=== PATIENT | male | born 1960 | race Caucasian/White ===

== ENCOUNTER → 2019-07-30 12:38 | Outpatient (BNVA) | payer MEDICARE, MEDICAID, SELFPAY | PROVIDERS: Family Provider Nurse Practitioner; PCP Nurse Practitioner; Visit Provider Nurse Practitioner | DX: J44.1 Chronic obstructive pulmonary disease with (acute) exacerbation (principal); E78.5 Hyperlipidemia, unspecified; E55.9 Vitamin D deficiency, unspecified; Z12.5 Encounter for screening for malignant neoplasm of prostate; Z86.59 Personal history of other mental and behavioral disorders; R39.11 Hesitancy of micturition; R09.81 Nasal congestion | CPT/HCPCS: 80053; 80061; 82306; G0103 ==

== ENCOUNTER 2019-09-02 14:07 | Outpatient (CLI) | payer MEDICARE, MEDICAID, SELFPAY ==
--- NOTE | 2019-09-02 14:16 | XR_ITS ---
WS: [id number] TIBIA-FIBULA LEFT TECHNIQUE: 2 views of the left tibia-fibula CLINICAL INFORMATION: left knee pain COMPARISON: None. FINDINGS: No evidence of acute fracture dislocation. Normal tibiotalar joint. Normal visualized tibia and fibul a. Normal soft tissues. XR/XR tibia fibula LT 2V [id number] IMPRESSION: Normal left tibia and fibula
--- NOTE | 2019-09-02 14:16 | XR_ITS ---
WS: [id number] KNEE LEFT TECHNIQUE: 2 views of the left knee CLINICAL INFORMATION: left knee pain COMPARISON: None. FINDINGS: Mild degenerative narrowing medial joint compartment. Lateral compartment is better preserved. Hypert rophic patella. Small suprapatellar effusion. 10 mm Radiopaque density medial tibial plateau. XR/XR knee LT 1-2V [id number] IMPRESSION: 1. Mild degenerative arthritis left knee with mild medial compartment narrowin g. 2. Hypertrophic patella with small suprapatellar effusion. 3. 10 mm radiopaque foreign object medial tibial plateau
== END 2019-09-02 14:08 | disposition home or self-care (01) ==
LOC: RADWPI 14:12
PROVIDERS: Family Provider Nurse Practitioner; PCP Nurse Practitioner; Visit Provider Surgery
DX: M17.12 Unilateral primary osteoarthritis, left knee (principal); M25.462 Effusion, left knee
CPT/HCPCS: 73560; 73590

== ENCOUNTER → 2020-02-03 11:34 | Outpatient (BNVA) | payer MEDICARE, MEDICAID, SELFPAY | PROVIDERS: Family Provider Nurse Practitioner; PCP Nurse Practitioner; Visit Provider Nurse Practitioner | DX: Z12.5 Encounter for screening for malignant neoplasm of prostate (principal); E78.5 Hyperlipidemia, unspecified; E55.9 Vitamin D deficiency, unspecified; J44.1 Chronic obstructive pulmonary disease with (acute) exacerbation; Z86.59 Personal history of other mental and behavioral disorders; R39.11 Hesitancy of micturition; R09.81 Nasal congestion; J44.9 Chronic obstructive pulmonary disease, unspecified | CPT/HCPCS: 80053; 80061 ==

== ENCOUNTER → 2020-10-07 12:14 | Outpatient (BNVA) | payer MEDICARE, MEDICAID, SELFPAY | PROVIDERS: Family Provider Nurse Practitioner; PCP Nurse Practitioner; Visit Provider Nurse Practitioner | DX: E78.5 Hyperlipidemia, unspecified (principal); E55.9 Vitamin D deficiency, unspecified; J44.9 Chronic obstructive pulmonary disease, unspecified; Z86.59 Personal history of other mental and behavioral disorders; R09.81 Nasal congestion | CPT/HCPCS: 80053; 80061; 82306; 83721 ==

== ENCOUNTER → 2021-04-04 15:07 | Outpatient (BNVA) | payer MEDICARE, MEDICAID, SELFPAY | PROVIDERS: Family Provider Nurse Practitioner; PCP Nurse Practitioner; Visit Provider Nurse Practitioner | DX: J44.9 Chronic obstructive pulmonary disease, unspecified (principal); R09.81 Nasal congestion; E55.9 Vitamin D deficiency, unspecified; E78.5 Hyperlipidemia, unspecified; E78.1 Pure hyperglyceridemia; R39.11 Hesitancy of micturition; Z86.59 Personal history of other mental and behavioral disorders | CPT/HCPCS: 71046; 80053; 80061; 82306; 83721; 85025 ==

== ENCOUNTER → 2021-09-26 10:47 | Outpatient (BNVA) | payer MEDICARE, MEDICAID, SELFPAY | PROVIDERS: Family Provider Nurse Practitioner; PCP Nurse Practitioner; Visit Provider Nurse Practitioner | DX: E78.1 Pure hyperglyceridemia (principal); E55.9 Vitamin D deficiency, unspecified | CPT/HCPCS: 80053; 80061; 82306 ==

== ENCOUNTER → 2022-02-13 13:41 | Outpatient (BNVA) | payer MEDICARE, MEDICAID, SELFPAY | PROVIDERS: Family Provider Nurse Practitioner; PCP Nurse Practitioner; Visit Provider Nurse Practitioner | DX: R73.9 Hyperglycemia, unspecified (principal); E78.5 Hyperlipidemia, unspecified; R09.81 Nasal congestion; E78.1 Pure hyperglyceridemia; R39.11 Hesitancy of micturition; J44.9 Chronic obstructive pulmonary disease, unspecified; Z86.59 Personal history of other mental and behavioral disorders; E55.9 Vitamin D deficiency, unspecified | CPT/HCPCS: 80053; 80061; 82306; 83036; 83721 ==

== ENCOUNTER → 2022-05-11 14:01 | Outpatient (BNVA) | payer MEDICARE, MEDICAID, SELFPAY | PROVIDERS: Family Provider Nurse Practitioner; PCP Nurse Practitioner; Visit Provider Nurse Practitioner | DX: E78.5 Hyperlipidemia, unspecified (principal); H91.93 Unspecified hearing loss, bilateral; M25.511 Pain in right shoulder | CPT/HCPCS: 73030 ==

== ENCOUNTER → 2022-06-30 09:51 | Outpatient (BNVA) | payer MEDICARE, MEDICAID, SELFPAY | PROVIDERS: Family Provider Nurse Practitioner; PCP Nurse Practitioner; Visit Provider Nurse Practitioner | DX: R09.81 Nasal congestion (principal); E78.5 Hyperlipidemia, unspecified; E78.1 Pure hyperglyceridemia; R39.11 Hesitancy of micturition; J44.9 Chronic obstructive pulmonary disease, unspecified; Z86.59 Personal history of other mental and behavioral disorders; M79.18 Myalgia, other site | CPT/HCPCS: 80053; 80061; 83721 ==

== ENCOUNTER → 2022-08-28 11:11 | Outpatient (BNVA) | payer MEDICARE, MEDICAID, SELFPAY | PROVIDERS: Family Provider Nurse Practitioner; PCP Nurse Practitioner; Visit Provider Nurse Practitioner | DX: R09.81 Nasal congestion (principal); E78.5 Hyperlipidemia, unspecified; E78.1 Pure hyperglyceridemia; R39.11 Hesitancy of micturition; J44.9 Chronic obstructive pulmonary disease, unspecified; Z86.59 Personal history of other mental and behavioral disorders; M79.18 Myalgia, other site | CPT/HCPCS: 80053; 80061; 83721 ==

== ENCOUNTER → 2023-01-18 10:14 | Outpatient (BNVA) | payer MEDICARE, MEDICAID, SELFPAY | PROVIDERS: Family Provider Nurse Practitioner; PCP Nurse Practitioner; Visit Provider Nurse Practitioner | DX: R09.81 Nasal congestion (principal); E78.5 Hyperlipidemia, unspecified; E78.1 Pure hyperglyceridemia; R39.11 Hesitancy of micturition; J44.9 Chronic obstructive pulmonary disease, unspecified; Z86.59 Personal history of other mental and behavioral disorders; E55.9 Vitamin D deficiency, unspecified; Z12.5 Encounter for screening for malignant neoplasm of prostate | CPT/HCPCS: 80053; 80061; 82306; G0103 ==

== ENCOUNTER → 2023-07-04 14:07 | Outpatient (BNVA) | payer MEDICARE, MEDICAID, SELFPAY | PROVIDERS: Family Provider Nurse Practitioner; PCP Nurse Practitioner; Visit Provider Nurse Practitioner | DX: E78.5 Hyperlipidemia, unspecified (principal); R05.9 Cough, unspecified; L03.90 Cellulitis, unspecified; J06.9 Acute upper respiratory infection, unspecified | CPT/HCPCS: 80053; 80061; 83721; 85025; 87426 ==

== ENCOUNTER → 2023-09-19 12:04 | Outpatient (BNVA) | payer MEDICARE, MEDICAID, SELFPAY | PROVIDERS: Family Provider Nurse Practitioner; PCP Nurse Practitioner; Visit Provider Nurse Practitioner | DX: E78.1 Pure hyperglyceridemia (principal) | CPT/HCPCS: 80053; 80061 ==

== ENCOUNTER → 2024-02-06 16:51 | Outpatient (BNVA) | payer MEDICARE, MEDICAID, SELFPAY | PROVIDERS: Family Provider Nurse Practitioner; PCP Nurse Practitioner; Visit Provider Nurse Practitioner | DX: R10.31 Right lower quadrant pain (principal) | CPT/HCPCS: 80053; 85025 ==

== ENCOUNTER 2024-02-18 13:44 | Outpatient (CLI) | payer MEDICARE, MEDICAID, SELFPAY ==
[2024-02-18] MEDS: iohexol 350 mg/mL 500 mL Btl (per mL) PO (14:37)
--- NOTE | 2024-02-18 14:45 | CT_ITS ---
WS: [id number] CT ABDOMEN PELVIS TECHNIQUE: Contrast-enhanced CT of the abdomen and pelvis with coronal and sagittal reformatted image s. CLINICAL INFORMATION: R10.31 - Right lower quadrant pain COMPARISON: None. DLP: 1196.[address] scans at [facility] use at least one of these dose optimization techniques: automated e xposure control; mA and/or kV adjustment per patient size (includes targeted exams where dose is matc hed to clinical indication); or iterative reconstruction. FINDINGS: Diffuse fatty infiltration of the liver. Normal portal vein and splenic vein. Normal gallbladder. Nor mal GE junction. Normal spleen. Adrenal glands are normal. Normal renal parenchymal enhancement. No h ydronephrosis. Small RIGHT renal cyst measuring 11 mm. Normal caliber abdominal aorta. Celiac and SMA are patent. Mild aortic calcification. Normal appendix in the RIGHT lower quadrant. No evidence of acute appendicitis. Sigmoid diverticulosi s. No evidence of acute diverticulitis. Fat-containing umbilical hernia. CT/CT abdomen pelvis w con* [id number] IMPRESSION: 1. Normal appendix in the RIGHT lower quadrant. No evidence of acute appendici tis. 2. Sigmoid diverticulosis. No evidence of acute diverticulitis. 3. Diffuse fatty infiltration of the liver. 4. Small fat-containing umbilical hernia.
[2024-02-18] MEDS: iohexol 350 mg/mL 500 mL Btl (per mL) IV (15:07)
== END 2024-02-18 13:45 | disposition home or self-care (01) ==
LOC: RAD 13:45
PROVIDERS: Family Provider Nurse Practitioner; PCP Nurse Practitioner; Visit Provider Nurse Practitioner
DX: K57.90 Diverticulosis of intestine, part unspecified, without perforation or abscess without bleeding (principal); K76.0 Fatty (change of) liver, not elsewhere classified; K42.9 Umbilical hernia without obstruction or gangrene; N28.1 Cyst of kidney, acquired; R10.31 Right lower quadrant pain
CPT/HCPCS: 74177; Q9967

== ENCOUNTER → 2024-05-19 14:30 | Outpatient (BNVA) | payer MEDICARE, MEDICAID, SELFPAY | PROVIDERS: Family Provider Nurse Practitioner; PCP Nurse Practitioner; Visit Provider Nurse Practitioner | DX: E78.5 Hyperlipidemia, unspecified (principal); E88.810 Metabolic syndrome | CPT/HCPCS: 80053; 80061; 84443 ==

== ENCOUNTER → 2024-09-08 09:15 | Outpatient (BNVA) | payer MEDICARE, MEDICAID, SELFPAY | PROVIDERS: Family Provider Nurse Practitioner; PCP Nurse Practitioner; Visit Provider Nurse Practitioner | DX: E78.1 Pure hyperglyceridemia (principal); E55.9 Vitamin D deficiency, unspecified | CPT/HCPCS: 80053; 80061; 82306; 83721; 84443 ==

== ENCOUNTER → 2024-11-27 09:13 | Outpatient (BNVA) | payer MEDICARE, MEDICAID, SELFPAY | PROVIDERS: Family Provider Nurse Practitioner; PCP Nurse Practitioner; Visit Provider Nurse Practitioner | DX: E78.1 Pure hyperglyceridemia (principal); R73.9 Hyperglycemia, unspecified; Z12.5 Encounter for screening for malignant neoplasm of prostate; E78.5 Hyperlipidemia, unspecified | CPT/HCPCS: 80053; 80061; 83036; 84439; 84443; 84481; G0103 ==

== ENCOUNTER 2025-01-27 10:07 | Outpatient (CLI) | payer MEDICARE, MEDICAID, SELFPAY | END 2025-01-27 10:08 | disposition home or self-care (01) | LOC: SLEEP 10:10 | PROVIDERS: Family Provider Nurse Practitioner; PCP Nurse Practitioner; Visit Provider Nurse Practitioner | DX: J43.8 Other emphysema (principal) | CPT/HCPCS: 94762 ==

== ENCOUNTER → 2025-02-11 09:26 | Outpatient (BNVA) | payer MEDICARE, MEDICAID, SELFPAY | PROVIDERS: Family Provider Nurse Practitioner; PCP Nurse Practitioner; Visit Provider Nurse Practitioner | DX: E78.1 Pure hyperglyceridemia (principal); M79.18 Myalgia, other site; Z86.59 Personal history of other mental and behavioral disorders | CPT/HCPCS: 80053; 80061; 84443 ==

== ENCOUNTER 2025-02-27 13:01 | Outpatient (CLI) | payer OTHER, MEDICAID, SELFPAY ==
--- NOTE | 2025-02-27 13:30 | US_ITS ---
WS: [id number] THYROID ULTRASOUND HISTORY: E05.90 - Thyrotoxicosis, unspecified without thyrotoxic c... COMPARISON: None available. Right lobe: 2.3 cm x 2.4 cm x 4.4 cm (w x ap x l). Volume: 11.7 cm3. Enlarged RIGHT thyroid lobe. Heterogeneous mass in the central thyroid. There is mixed echogenicity and the margins are poorly defined. Measures 1.2 x 1.4 x 2.1 cm. There is increased vascularity. No echogenic foci. Left lobe: 1.4 cm x 1.2 cm x 4.6 cm (w x ap x l). Volume: 3.8 cm3. Normal sized thyroid. No suspicious masses. No increased vascularity. Isthmus: 0.4 cm. US/US thyroid [id number] IMPRESSION: 1. TI-RADS 4; moderately suspicious nodule mid RIGHT thyroid. Recommend ultras ound-guided fine-needle aspiration. 2. No nodules LEFT thyroid.
== END 2025-02-27 13:02 | disposition home or self-care (01) ==
LOC: RAD 13:03
PROVIDERS: PCP Nurse Practitioner; Visit Provider Nurse Practitioner
DX: E05.90 Thyrotoxicosis, unspecified without thyrotoxic crisis or storm (principal); E04.9 Nontoxic goiter, unspecified
CPT/HCPCS: 76536

== ENCOUNTER 2025-03-25 13:25 | Outpatient (CLI) | payer OTHER, MEDICAID, SELFPAY ==
--- NOTE | 2025-03-25 14:45 | US_ITS ---
WS: [id number] ULTRASOUND-GUIDED RIGHT THYROID NODULE FNA HISTORY: TI-RADS 4 RIGHT thyroid lesion. Procedure, risks, and complications were explained to the patient. Consent has been obtained. Comparison: 02/27/2025 The skin is cleansed with ChloraPrep and anesthetized with 1% buffered lidocaine. FNA performed with 25 gauge needles. blood bank technologist is present to fix slides. Note: Suspicious RIGHT thyroid nodule. If biopsy results come back as inconclusive or benign consider surgical evaluation for possible removal versus close imaging and clinical follow-up. Suspicious nodule for malignancy. US/US biopsy/FNA thyroid [id number] IMPRESSION: Uncomplicated FNA of a RIGHT thyroid nodule. Final pathology results pending.
== END 2025-03-25 13:26 | disposition home or self-care (01) ==
LOC: RAD 13:27
PROVIDERS: PCP Nurse Practitioner; Visit Provider Nurse Practitioner
DX: R93.89 Abnormal findings on diagnostic imaging of other specified body structures (principal)
CPT/HCPCS: 10005; 88173

== ENCOUNTER → 2025-05-11 11:13 | Outpatient (BNVA) | payer OTHER, MEDICAID, SELFPAY | PROVIDERS: PCP Nurse Practitioner; Visit Provider Nurse Practitioner | DX: E55.9 Vitamin D deficiency, unspecified (principal); E78.1 Pure hyperglyceridemia; E05.90 Thyrotoxicosis, unspecified without thyrotoxic crisis or storm | CPT/HCPCS: 80053; 80061; 81000; 82306; 84443; 85025 ==

== ENCOUNTER 2025-06-16 13:22 | Oncology outpatient (recurring) (ONCR) | payer MEDICARE, MEDICAID, SELFPAY | END 2025-07-15 23:59 | disposition home or self-care (01) | PROVIDERS: PCP Nurse Practitioner; Visit Provider Internal Medicine Medical Oncology | DX: D75.1 Secondary polycythemia (principal); F17.210 Nicotine dependence, cigarettes, uncomplicated | CPT/HCPCS: 99195; 99204 ==